=== PATIENT | female | born 1980 | race Caucasian/White ===

== ENCOUNTER 2020-01-31 09:05 | Emergency (ER) | payer BC ==
[~2020-01-31] VITALS: Ht 165.1 cm; Wt 65.3 kg
[2020-01-31 09:20] VITALS: Ht 165.1 cm; Wt 65.3 kg
[2020-01-31 11:04] VITALS: BP 122/67
== END 2020-01-31 11:04 | disposition home or self-care (01) ==
LOC: ED 09:05
DX: U07.1 COVID-19 (principal); S20.212A Contusion of left front wall of thorax, initial encounter; X58.XXXA Exposure to other specified factors, initial encounter; Y93.89 Activity, other specified; Y92.89 Other specified places as the place of occurrence of the external cause; Y99.8 Other external cause status
CPT/HCPCS: U0003